=== PATIENT | male | born 1960 | race Two or more races ===

== ENCOUNTER 2022-02-02 10:58 | Inpatient (IN) | payer OTHER ==
[2022-01-28 14:22] LABS: BASOPHILS % (AUTO) 0.6 % (0-1); EOSINOPHILS # (AUTO) 0.1 X10'3 (0-0.9); EOSINOPHILS % (AUTO) 1.1 % (0-6); LYMPHOCYTES # (AUTO) 1.8 X10'3 (1.1-4.8); LYMPHOCYTES % (AUTO) 24.2 % (21-51); MEAN CORPUSCULAR HEMOGLOBIN 28.1 PG (27.0-31.0); MEAN CORPUSCULAR HGB CONC 32.8 g/dL (33.0-36.5); MEAN CORPUSCULAR VOLUME 85.7 FL (78-98); MEAN PLATELET VOLUME 8.3 FL (7.4-10.4); MONOCYTES # (AUTO) 0.5 X10'3 (0-0.9); MONOCYTES % (AUTO) 6.5 % (2-12); NEUTROPHILS % (AUTO) 67.6 % (42-75); PRE OP HEMATOCRIT 44.2 % (42.0-52.0); PRE OP HEMOGLOBIN 14.5 g/dL (14.0-17.9); PRE OP PLATELET COUNT 280 X10'3 (140-440); RED BLOOD COUNT 5.16 X10'6 (4.70-6.10); RED CELL DISTRIBUTION WIDTH 14.4 % (11.5-14.5)
[2022-01-28 14:41] LABS: ALBUMIN/GLOBULIN RATIO 1.1 (1.1-1.5); ALKALINE PHOSPHATASE 89 IU/L (46-116); BLOOD UREA NITROGEN 16 MG/DL (7-18); BUN/CREATININE RATIO 20.3 (5.4-32.0); CALCIUM 8.4 MG/DL (8.5-10.1); CHLORIDE 106 MMOL/L (99-107); CREATININE 0.79 MG/DL (0.60-1.10); PRE OP ALT 30 U/L (30-65); PRE OP ANION GAP 8 (8-16); PRE OP AST 15 U/L (10-37); PRE OP BILIRUB, TOTAL 0.2 MG/DL (0.0-1.0); PRE OP GLUCOSE 108 MG/DL (70-104); PRE OP POTASSIUM 3.8 MMOL/L (3.4-5.1); PRE OP SODIUM 139 MMOL/L (135-145); TOTAL CARBON DIOXIDE 25.5 MMOL/L (24-32); TOTAL PROTEIN 7.7 G/DL (6.4-8.2); eGFR > 90 ML/MIN
[~2022-02-02] VITALS: Ht 165.1 cm; Wt 108.4 kg
[2022-02-02] VITALS (22 sets, daily range): BP systolic 105–143; BP diastolic 53–97
[~2022-02-02 10:58] MED LIST: AMIT10TA6 PO; LYR75C PO; ceFAZolin inj. 2,000 MG in dextrose 5%-water 100 ML IV ONE; famotidine 20mg tablet PO ONE; ringers solution, lacted 1,000 ML IV SCH; tranexamic acid 650mg tablet PO ONE; vancomycin 1,500 MG in NS 300ml IV soln IV ONE
--- NOTE | 2022-02-02 12:30 | NUR ---
PT STATES HE SHOWERED W/HIBICLENS X 5 DAYS AND USED BACTROBAN OINTMENT X 2 DAYS HIS PHARMACY DID NOT HAVE IT AVAILABLE PER [employer] RECOMMENDATIONS. 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 RIGHT RADIAL PULSE PALPABLE AND STRONG. PT STATES HE DID NOT WATCH THE DVD OR GO TO THE WEB SITE FOR THE INFORMATION. Addendum: 02/02/22 at 1437 by Jennifer Montgomery RN Amended: Links added.
[2022-02-02] MEDS ORDERED: pregabalin 75mg capsule PO ONE (13:15)
[2022-02-02] MEDS ORDERED: acetaminophen 325mg tablet PO ONE (13:15)
[2022-02-02] MEDS ORDERED: ROPIVAcaine 0.5% (5mg/ml) 30ml vial ONE ×2 (13:57→14:37)
[2022-02-02] MEDS ORDERED: midazolam 1 mg/ML 2ml injection ONE (14:25)
[2022-02-02] MEDS ORDERED: fentaNYL/PF 50MCG/1 ML 2ML syringe ONE ×2 (14:25→15:31)
[2022-02-02] MEDS ORDERED: dexamethasone sod phosphate 4mg/ml inj. ONE (14:37)
[2022-02-02] MEDS ORDERED: propofol inj 20 ML IV ONE (14:38)
[2022-02-02] MEDS ORDERED: meperidine/PF 25mg/ml syringe IV PRN ×3 (14:45)
[2022-02-02] MEDS ORDERED: ondansetron/PF 4mg/2ml inj IV PRN ×2 (14:45→17:25)
[2022-02-02] MEDS ORDERED: ROPIVAcaine 0.2%/PF PUMP/bolus 545 ML INTERSCALE SCH (14:45)
[2022-02-02] MEDS ORDERED: morphine 2 MG/ML inj. syringe IV PRN (14:45)
[2022-02-02] MEDS ORDERED: proCHLORperazine 10 MG/2 ml inj IV PRN (14:45)
[2022-02-02] MEDS ORDERED: morphine 4 MG/ML inj SYRINge IV PRN (14:45)
[2022-02-02] MEDS ORDERED: ringers solution, lacted 1,000 ML IV SCH (14:45)
[2022-02-02] MEDS ORDERED: ROPIVAcaine 0.2% (10 MG/5 ML) BOLUS INJECTION INTERSCALE PRN (14:45)
[2022-02-02] MEDS ORDERED: rocuronium 10mg/ml inj IV ONE (15:33)
[2022-02-02] MEDS ORDERED: glycopyrrolate 0.2mg/ml inj ONE (15:34)
[2022-02-02] MEDS ORDERED: ondansetron/PF 4mg/2ml inj ONE (15:34)
[2022-02-02] MEDS ORDERED: neostigmine methylsulfate 1 MG/ML 10ml vial ONE (15:34)
[2022-02-02] MEDS ORDERED: ketorolac trometh. 30mg/ml inj. IV ONE (16:02)
[2022-02-02] MEDS ORDERED: sugammadex 200mg/2ml injection IV ONE (17:04)
--- NOTE | 2022-02-02 17:15 | NUR ---
Received from OR via HOSPITAL BED, accompanied by Anesthesiologist DR GARCIAS and report given by Anesthesiolgist. PT IS GROGGY BUT RESPONDS TO VERBAL STIMULI. PT IS GERMAN SPEAKING. PT PLACED ON BEDSIDE MONITOR, VSS. PT IS SR WITH RATE IN 90'S, RECEIVING 8L O2 TO MASK AND TOLERATING WELL, O2 SAT > 97%. PT HAS 20G PIV TO LEFT HAND WITH LR INFUSING ORDERED. PT HAS DRSG TO RIGHT SHOULDER THAT IS CDI. SHOULDER WRAP IN PLACE WELL ICE PACK. PT HAS ON-Q PUMP THAT WILL BE PLACED SOON IT IS AVAILABLE. PT IS RESTING COMFORTABLY AT THIS TIME AND DENIES PAIN. WILL BRING IN TO HELP TRANSLATE. WILL CONTINUE TO ASSESS.
[2022-02-02] MEDS ORDERED: HYDROmorphone 1 mg/ml syringe IV PRN (17:25)
[2022-02-02] MEDS ORDERED: acetaminophen 325mg tablet PO PRN (17:25)
[2022-02-02] MEDS ORDERED: HYDROmorphone inj. 0.5 MG/0.5 ML DISP.SYRIN IV PRN (17:25)
[2022-02-02] MEDS ORDERED: HYDROcodone/acetaminophen 10/325mg tab PO PRN ×2 (17:25)
[2022-02-02] MEDS ORDERED: bisacodyl 10mg suppository rectal RC PRN (17:25)
[2022-02-02] MEDS ORDERED: oxyCODONE IR 5mg (immed. release) tablet PO PRN ×2 (17:25)
[2022-02-02] MEDS ORDERED: naloxone 0.4 mg/ml inj IV PRN (17:25)
[2022-02-02] MEDS ORDERED: magnesium hydroxide 30ml (MOM) UD suspension PO PRN (17:25)
[2022-02-02] MEDS ORDERED: diphenhydrAMINE 25mg capsule PO PRN ×2 (17:25)
--- NOTE | 2022-02-02 19:19 | NUR ---
REPORT GIVEN TO MINNIE AGUILA AND ALL QUESTIONS ANSWERED. PATIENT TRANSFERRED TO ORTHO. LABELED BELONGINGS PRESENT AND DELIVERED TO ROOM. RN PRESENT ALL CRITERIA FOR TRANSFER BACK TO THE FLOOR HAS BEEN ACHIEVED. VSS. PAIN AT A TOLERABLE LEVEL. BED LOW, CALL LIGHT PRESENT AND 2 RAILS DOWN. RN AWARE THAT PATIENT HAS ARRIVED. TO ACCEPT CARE OF PATIENT.
[2022-02-02] MEDS ORDERED: vancomycin/NS 1 GM ADD-VANTAGE 250 ML IV SCH (20:00)
[2022-02-02] MEDS ORDERED: sennosides 8.6mg tablet PO SCH (21:00)
[2022-02-02] MEDS ORDERED: amitriptyline 10mg tablet PO SCH (21:00)
[2022-02-02] MEDS: acetaminophen 325mg tablet PO SCH (21:55)
[2022-02-02] MEDS: pregabalin 75mg capsule PO SCH (21:55)
[2022-02-03] MEDS: cefazolin/dext.iso 2gm/100ml 100 ML IV SCH ×2 (01:18→08:40)
[2022-02-03] MEDS: potassium cl 20mEq in 1/2 NS 1,000 ML IV SCH ×2 (01:18→01:25)
[2022-02-03 02:00] VITALS: BP 105/65
[2022-02-03] MEDS: acetaminophen 325mg tablet PO SCH ×2 (02:00→07:23)
[2022-02-03 06:00] VITALS: BP 117/81
[2022-02-03 06:16] LABS: ANION GAP 7 (8-16); BASOPHILS % (AUTO) 0 % (0-1); CHLORIDE 107 MMOL/L (99-107); EOSINOPHILS % (AUTO) 0 % (0-6); HEMATOCRIT 40.3 % (42.0-52.0); HEMOGLOBIN 13.4 g/dl (14.0-17.9); LYMPHOCYTES # (AUTO) 0.8 X10'3 (1.1-4.8); LYMPHOCYTES % (AUTO) 6.9 % (21-51); MEAN CORPUSCULAR HEMOGLOBIN 28.4 PG (27.0-31.0); MEAN CORPUSCULAR HGB CONC 33.3 g/dL (33.0-36.5); MEAN CORPUSCULAR VOLUME 85.2 FL (78-98); MEAN PLATELET VOLUME 8.4 FL (7.4-10.4); MONOCYTES # (AUTO) 0.6 X10'3 (0-0.9); MONOCYTES % (AUTO) 4.7 % (2-12); NEUTROPHILS # (AUTO) 10.7 X10'3 (1.8-7.7); NEUTROPHILS % (AUTO) 88.4 % (42-75); PLATELET COUNT 280 X10'3 (140-440); POTASSIUM 3.8 MMOL/L (3.5-5.1); RED BLOOD COUNT 4.73 X10'6 (4.70-6.10); RED CELL DISTRIBUTION WIDTH 14.1 % (11.5-14.5); SODIUM 139 MMOL/L (135-145); TOTAL CARBON DIOXIDE 24.6 MMOL/L (24-32); WHITE BLOOD COUNT 12.1 X10'3 (4.5-11.0)
--- NOTE | 2022-02-03 06:52 | NUR ---
Patient in room [facility]TH[facility] 4023. I have received report from MINGO Martinez and had the opportunity to ask questions and assume patient care.
[2022-02-03] MEDS: pregabalin 75mg capsule PO SCH (07:22)
[2022-02-03] MEDS ORDERED: aspirin 325mg tablet PO SCH (08:30)
--- NOTE | 2022-02-03 10:33 | NUR ---
Patient was discharged at 0955 with instructions and verbalizing understanding of instructions in wheelchair accompanied by family and nursing staff going home via private vehicle. All lines and tubes including PIV with cannula intact were removed. Education was provided and all questions were answered. Patient will call to make follow up apppointment with Dr. Sotomayor. Patient is stable and appropriate for discharge.
--- NOTE | 2022-02-03 11:21 | NUR ---
Joint Surgery Consult: Pt s/p R shoulder surgery this admit per EMR. Pt discharged prior to RD visit; written high protein diet ed w/ RD contact information mailed to pt home address provided in EMR. Addendum: 02/03/22 at [address] Amended: Links added.
[2022-02-03] MEDS ORDERED: celeCOXIB 100mg capsule PO SCH (20:00)
[2022-02-04] MEDS ORDERED: acetaminophen 325mg tablet PO PRN (17:25)
== END 2022-02-03 10:00 | disposition home or self-care (01) | DRG 483 ==
LOC: PAS IN 10:58 → ORTHO 4S 19:15
PROVIDERS: ADMIT Orthopaedic Surgery; ATTEND Orthopaedic Surgery
PROC: 0LS30ZZ Reposition Right Upper Arm Tendon, Open Approach (ICD-10-PCS; 2022-02-02)
PROC: 3E0T3BZ Introduction of Anesthetic Agent into Peripheral Nerves and Plexi, Percutaneous Approach (ICD-10-PCS; 2022-02-02)
PROC: 0RRJ00Z Replacement of Right Shoulder Joint with Reverse Ball and Socket Synthetic Substitute, Open Approach (ICD-10-PCS; principal; 2022-02-02 14:55)
DX: M19.011 Primary osteoarthritis, right shoulder (principal); M75.121 Complete rotator cuff tear or rupture of right shoulder, not specified as traumatic
CPT/HCPCS: 36415; 80051; 80053; 82948; 85025; 87081; 87811; 97110; 97116; 97161; 97530; G0378; J0690; J1100; J1885; J2250; J2405; J2704; J2710; J2795; J3010; J3370; J3480; J3490; J7040; J7060; J7120